=== PATIENT | male | born 2000 | race Caucasian/White ===

== ENCOUNTER 2023-07-19 16:01 | Emergency (ER) | payer OTHER ==
[~2023-07-19] VITALS: Ht 177.8 cm; Wt 84.0 kg
[2023-07-19 16:08] VITALS: TEMP 97.6
[2023-07-19] MEDS ORDERED: PredniSONE 20 MG TABLET PO ONE (16:15)
[2023-07-19] MEDS ORDERED: PRED-554 PO (16:53)
[2023-07-19] MEDS ORDERED: HYDR25CA PO (16:54)
[2023-07-19 17:00] VITALS: BP 110/76; PULSE 83; RESP 16
== END 2023-07-19 17:07 ==
LOC: EMS 16:04
DX: J45.909 Unspecified asthma, uncomplicated (principal); F41.9 Anxiety disorder, unspecified
CPT/HCPCS: 99283; 71045; J7512